=== PATIENT | female | born 1995 | race Caucasian/White ===

== ENCOUNTER 2016-11-02 22:24 | Emergency (ER) | payer BC ==
[~2016-11-02] VITALS: Ht 160 cm; Wt 50.8 kg
[2016-11-02 22:30] VITALS: BP_SYST 121
--- NOTE | 2016-11-02 22:34 | NUR ---
Patient to ER bed 6 to gown for evaluation. Side rails up. Report given to Zenaida CHAVIS.
--- NOTE | 2016-11-02 22:36 | NUR ---
Patient AOx4, ambulatory, presents to ER with complaint of right eye redness x1 day. Patient states there is minimal yellow drainage to site. Denies pruritus to site. Denies fever and chills. Patient states she is 13 weeks .
--- NOTE | 2016-11-02 22:40 | NUR ---
ER MD Rob at bedside for medical evaluation.
--- NOTE | 2016-11-02 22:55 | NUR ---
Patient given written and verbal discharge instructions and verbalizes understanding. ER MD discussed with patient the results and treatment provided. Patient in stable condition. ID arm band removed. Rx of Erythromycin and Tylenol given. Patient educated on pain management and to follow up with PMD. Pain Scale 1/10 tolerable to patient. Opportunity for questions provided and answered.
== END 2016-11-02 22:55 | disposition home or self-care (01) ==
LOC: SED 22:24
DX: O26.891 Other specified pregnancy related conditions, first trimester (principal); H00.012 Hordeolum externum right lower eyelid; O21.9 Vomiting of pregnancy, unspecified; Z3A.13 13 weeks gestation of pregnancy
CPT/HCPCS: 99283